=== PATIENT | female | born 1985 | race Caucasian/White ===

== ENCOUNTER → 2017-11-10 11:54 | Outpatient (CLI) | payer BC, SELFPAY ==
[2017-11-10 15:33] LABS: Chlamydia Trachomatis by PCR Negative (Negative); Neisserai gonorrhoeae by PCR Negative (Negative); Probe Check PASS; Sample Adequacy Control PASS; Specimen Processing Control PASS
== END ==
PROVIDERS: Visit Provider Obstetrics & Gynecology
DX: Z11.3 Encounter for screening for infections with a predominantly sexual mode of transmission (principal); Z32.01 Encounter for pregnancy test, result positive
CPT/HCPCS: 87491; 87591

== ENCOUNTER → 2017-12-11 14:35 | Outpatient (CLI) | payer BC, SELFPAY ==
[2017-12-11 16:04] LABS: Color, Urine Yellow (Yellow); Glucose, Dipstick 50 mg/dl (Normal); Leukocyte Esterase-Dipstick Negative /ul (Negative); Nitrite-Dipstick Negative (Negative); Occult Blood-Urine Negative /ul (Negative); Protein-Dipstick 15 mg/dl (Negative); Urine Bilirubin Dipstick Negative (Negative); Urine Clarity Sl. Cloudy (Clear); Urine Urobilinogen Normal (Normal)
[2017-12-11 16:06] LABS: Amphetamine Urine VISTA NEGATIVE (<1000 ng/mL); Barbiturate Urine VISTA NEGATIVE (< 200 ng/mL); Benzodiazepine Urine VISTA NEGATIVE (< 200 ng/mL); Cocaine Urine VISTA NEGATIVE (< 300 ng/mL); Ecstacy Urine VISTA NEGATIVE (< 500 ng/mL); Methadone Urine VISTA NEGATIVE (< 300 ng/mL); PCP Urine VISTA NEGATIVE (< 25 ng/mL); THC Urine VISTA NEGATIVE (< 50 ng/mL); Vista UDS pH Range 6
[2017-12-11 16:20] LABS: Ketone-Dipstick 150 mg/dl (Negative)
[2017-12-11 18:10] LABS: Absolute Lymphocyte Count 2.73 X10^3/ul (0.83-4.51); Absolute Neutrophil Count 8.2 X10^3/uL (2.0-7.7); Basophil# 0.04 X10^3/uL; Basophil% 0.3 % (0-1); Eosinophil# 0.17 X10^3/uL; Eosinophils% 1.4 % (0-5); Hematocrit 41.5 % (37-47); Hemoglobin 13.3 g/dl (12.0-15.0); Lymphocyte # 2.73 X10^3/ul (4.0); Lymphocyte % 22.8 % (19-41); Mean Corpuscular Hgb 27.4 pg (27.0-32.0); Mean Corpuscular Volume 85.4 fL (81-99); Mean Platelet Vol. 11.4 fl (6.2-12.0); Monocyte# 0.85 X10^3/uL; Monocyte% 7.1 % (0-10); Neutrophil # 8.18 X10^3/uL (2.7-7.7); Neutrophil % 68.1 % (47-70); Platelet Count 211 K/mm3 (150-450); RBC Distribution Width CV 14.8 % (11.6-14.6); RBC Distribution Width SD 45.7 fl (35.1-43.9); Red Blood Count 4.86 M/mm3 (4.2-5.4)
[2017-12-11 18:20] LABS: POSITIVE COUNT NO; POSITIVE DIFFERENTIAL NO; POSITIVE MORPHOLOGY NO
[2017-12-11 18:39] LABS: ALB/GLOB Ratio 0.9 RATIO (0.9-2.4); AST(SGOT) 14 U/L (15-37); Alanine Aminotransfer ALT/SGPT 26 U/L (13-56); Albumin, Serum 3.3 g/dL (3.2-5.0); Alkaline Phosphatase 67 U/L (45-117); Anion Gap 10 (5-15); BUN 12 mg/dL (7-18); BUN/Creat Ratio 25.5 RATIO (10-20); Calcium,Total 9.1 mg/dL (8.5-10.1); Chloride 105 mmol/L (98-107); Creatinine, Serum 0.47 mg/dL (0.55-1.02); EST Glomerular Filtration Rate 161 mL/min (>60); Est Glom Filt Rate - Afr Amer 194 mL/min (>60); Globulin 3.6 g/dL (2.2-4.2); Glucose 113 mg/dL (74-106); Protein, Total 6.9 g/dL (6.4-8.2); Sodium Level 139 mmol/L (136-145); Thyroid Stim Hormone (TSH) 1.01 uIU/mL (0.358-3.74)
[2017-12-11 18:50] LABS: Hemoglobin A1c 5.3 % (4.2-6.3)
[2017-12-12 01:13] LABS: Prenatal RPR NONREACTIVE (NONREACTIVE)
[2017-12-12 10:46] LABS: HIV - WCH Non-Reactive (Nonreactive); Rubella IgG 70.7 IU/mL; Vitamin D,25 Hydroxy 24.4 ng/mL (29.95-100.01)
[2017-12-13 11:47] LABS: HEPATITIS B SURFACE AG Negative (Negative); Hep C Antibodies <0.1 s/co ratio (0.0-0.9)
== END ==
PROVIDERS: Visit Provider Obstetrics & Gynecology
DX: Z34.81 Encounter for supervision of other normal pregnancy, first trimester (principal)
CPT/HCPCS: 36415; 80053; 80307; 81002; 82306; 83036; 84443; 85025; 86703; 86762; 86803; 87340

== ENCOUNTER → 2018-03-31 10:51 | Outpatient (CLI) | payer BC, SELFPAY ==
[2018-03-31 13:53] LABS: Hematocrit 34.8 % (37-47); Hemoglobin 10.6 g/dl (12.0-15.0); Mean Corp Hgb Conc 30.5 g/gl (32-36); Mean Corpuscular Hgb 25.1 pg (27.0-32.0); Mean Corpuscular Volume 82.3 fL (81-99); Mean Platelet Vol. 10.7 fl (6.2-12.0); Platelet Count 214 K/mm3 (150-450); RBC Distribution Width CV 14.6 % (11.6-14.6); RBC Distribution Width SD 43.6 fl (35.1-43.9); Red Blood Count 4.23 M/mm3 (4.2-5.4); Scan Indicated on CBC? Y/N NO; White Blood Count 10.4 K/mm3 (4.4-11.0)
[2018-03-31 14:12] LABS: Glucose Challenge Gest 1H 50g 180 mg/dL (70-140)
[2018-04-01 09:55] LABS: Vitamin D,25 Hydroxy 45.2 ng/mL (29.95-100.01)
== END ==
PROVIDERS: Visit Provider Obstetrics & Gynecology
DX: Z34.83 Encounter for supervision of other normal pregnancy, third trimester (principal)
CPT/HCPCS: 36415; 82306; 82950; 85027

== ENCOUNTER → 2018-04-09 09:22 | Outpatient (CLI) | payer BC, SELFPAY ==
[2018-04-09 11:03] LABS: Glucose GTT-Gestational 1 Hr 180 mg/dL (<190)
[2018-04-09 11:08] LABS: Glucose GTT-Gestation. Fasting 82 mg/dL (<105)
[2018-04-09 12:52] LABS: Glucose GTT-Gestational 2 Hr 215 mg/dL (<165)
[2018-04-09 14:05] LABS: Glucose GTT-Gestational 3 Hr 196 L (<145)
== END ==
PROVIDERS: Family Provider Family Medicine; PCP Family Medicine; Visit Provider Obstetrics & Gynecology
DX: O99.810 Abnormal glucose complicating pregnancy (principal); Z3A.00 Weeks of gestation of pregnancy not specified
CPT/HCPCS: 36415; 82951; 82952

== ENCOUNTER 2018-04-29 08:00 | Outpatient (RCR) | payer BC, SELFPAY | END 2018-05-03 23:59 | LOC: DC 08:00 | PROVIDERS: Family Provider Family Medicine; PCP Family Medicine; Visit Provider Obstetrics & Gynecology | DX: O24.912 Unspecified diabetes mellitus in pregnancy, second trimester (principal); Z68.32 Body mass index [BMI] 32.0-32.9, adult; Z71.3 Dietary counseling and surveillance | CPT/HCPCS: 97802; 97803; G0108 ==

== ENCOUNTER 2018-05-11 18:30 | Outpatient (RCR) | payer BC, SELFPAY | END 2018-05-11 23:59 | LOC: DC 18:30 | PROVIDERS: Family Provider Family Medicine; PCP Family Medicine; Visit Provider Obstetrics & Gynecology | DX: O24.912 Unspecified diabetes mellitus in pregnancy, second trimester (principal); Z68.32 Body mass index [BMI] 32.0-32.9, adult; Z71.3 Dietary counseling and surveillance ==

== ENCOUNTER → 2018-05-26 13:45 | Outpatient (CLI) | payer BC, SELFPAY ==
[2018-05-26 17:04] LABS: Group B Strep DNA By PCR Negative (Negative); Internal Control PASS; Probe Check PASS; Specimen Processing Control PASS
== END ==
PROVIDERS: Visit Provider Obstetrics & Gynecology
DX: Z36.85 Encounter for antenatal screening for Streptococcus B (principal)
CPT/HCPCS: 87081; 87653

== ENCOUNTER 2018-05-26 23:15 | Inpatient (IN) | payer BC, SELFPAY ==
[2018-05-26] MEDS: Lactated Ringers 1,000 ML 50 ML IV (23:50)
[2018-05-27 00:01] LABS: Bedside Glucose 97 mg/dL (70-110)
[2018-05-27] MEDS: Betamethasone/Betamethasone 30 MG/5 ML Vial 12 MG IM (00:02)
--- NOTE | 2018-05-27 00:03 | PCM.PN.BLA ---
Progress Note LABOR PROGRESS NOTE 33 yo [id number] female presents prior to MN at 36 6/7 wk with gross ROM and UCs. Given Betamethasone per protocol for . Ordered PCN for under 37 wks, now 37 wks. Rapid strep GBS NEG. BP 119/67 A pos RI. GDM Diet controlled. 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 Now 37 wk after MN. Given betamethasone for SROM under 37 wks, but now 37 wks. NO PCN for GBS prophylaxis. GBS neg Admit for labor. Watch progress, descent, tolerance of labor
--- NOTE | 2018-05-27 00:08 | PN_ITS ---
Progress Note LABOR PROGRESS NOTE 33 yo [id number] female presents prior to MN at 36 6/7 wk with gross ROM and UCs. Given Betamethasone per protocol for . Ordered PCN for under 37 wks, now 37 wks. Rapid strep GBS NEG. BP 119/67 A pos RI. GDM Diet controlled. 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 Now 37 wk after MN. Given betamethasone for SROM under 37 wks, but now 37 wks. NO PCN for GBS prophylaxis. GBS neg Admit for labor. Watch progress, descent, tolerance of labor
[2018-05-27 00:15] VITALS: BMI 35.2
[2018-05-27 00:20] LABS: Hematocrit 31.4 % (37-47); Hemoglobin 9.7 g/dl (12.0-15.0); Mean Corp Hgb Conc 30.9 g/gl (32-36); Mean Corpuscular Hgb 23.4 pg (27.0-32.0); Mean Corpuscular Volume 75.7 fL (81-99); Mean Platelet Vol. 10.9 fl (6.2-12.0); Platelet Count 198 K/mm3 (150-450); RBC Distribution Width CV 16.2 % (11.6-14.6); RBC Distribution Width SD 43.4 fl (35.1-43.9); Red Blood Count 4.15 M/mm3 (4.2-5.4); White Blood Count 9.8 K/mm3 (4.4-11.0)
[2018-05-27 00:24] LABS: Scan Indicated on CBC? Y/N NO
[2018-05-27] MEDS: Lactated Ringers 1,000 ML 50 ML IV (00:53)
[2018-05-27 01:06] LABS: Bedside Glucose 88 mg/dL (70-110)
[2018-05-27] MEDS: fentaNYL-bupivacaine (epidural) 100 ML BAG EPIDURAL (01:30)
[2018-05-27 02:06] LABS: Bedside Glucose 98 mg/dL (70-110)
[2018-05-27] MEDS: Oxytocin 30 units/NS 500 ml 30 UNITS/500 ML IV.SOLN 334 UNITS IV (02:15)
--- NOTE | 2018-05-27 02:21 | PCM.OB.VAG ---
Vaginal Delivery Maternal Presentation: Active Labor 36 6/7 wk SROM , UCs Amniotic Membrane Rupture Type: Spontaneous at home Amniotic Fluid Description: Clear Final ANJELICA: 06/17/18 Gestational age: 37 Weeks and 0 Days Date of Procedure: 05/27/18 Pre-Operative Diagnosis: 36 6/7 wk SROM Post-Operative Diagnosis: 37 wk Surgery/ Procedure Performed: Spontaneous Vaginal Delivery Anesthesiologist: Rubi Bella Type of Anesthesia: Epidural Description of Procedure: of a arriola viable female over intact perineum. Head delivered OA. no nuchal cord Shoulders delivered easily. Cord clamped x two and cut. Infant to maternal abdomen with spont vigorous cry. Delayed cord clamping. Clamped x two and cut. PP exam; 1st posterior vag lac repaired to intact, hemostatic with 309 Vicryl Rapide Placenta delivered spont expulsion, expression 3V normal appearing and intact with trailing membranes EBL 200 cc Pt and jewel procedure well. To recovery, stable condition Ray Jonnie counts correct x two Presentation: Vertex, ALEJANDRO Placental Delivery Description: Spontaneous, Expressed Placenta Disposition: [facility] Cord Vessel Description: 3 Vessels Estimated Blood Loss: 200 A gender: Female (1 minute): 9 (5 minute): 10 Laceration: Vaginal Extension/lac, 1st degree - repaired to intact, hemostatic with fig 8 stitch 3-0 vicryl rapide under epidural Medications given after delivery: IV Pitocin Complications: None
--- NOTE | 2018-05-27 02:28 | PCM.DCVAG ---
Discharge Diet: No Restrictions Discharge Activity: May Shower, May Take a Tub Bath May resume sexual activity in: 4-6 weeks Additional Activity Instructions:: Nothing in the vagina for 4-6 weeks. You may return to work/school in 6 weeks. Additional Instructions: If you experience any of the following, contact your healthcare provider. Bleeding that soaks a pad every hour for 2 hours Fever 100.4 or higher Unrelieved abdominal pain Problems urinating (including inability to urinate or burning while urinating). Visual changes Severe headache Flu-like symptoms Pain or redness in one of both of your breasts Pain, warmth, tenderness or swelling in your legs, especially the calf area Frequent nausea and vomiting Symptoms of depression or anxiety If you experience any of the following, call 911 or go to the nearest Emergency Room. Chest pain Problems breathing Seizure activity Partial or complete paralysis of a body part, slurred speech, weakness or drooping of the face, or a sudden inability to walk or hold your balance Allergies/Adverse Reactions: Allergies nalbuphine [From Nubain] Allergy (Verified 05/27/18 00:11) Rash Medications to take at Discharge Inositol/G-Rcdeo-Abrljudb [Ovasitol Powder Packet] 1 each PO BID 05/27/18 Vits [Prenatabs FA] 1 tablet PO DAILY 05/27/18 Please Follow Up With: Jacqueline Bear MD - [phone] When: Call to make an appointment with your doctor in 6 weeks. Test Results: Test results from this visit will be discussed in further detail at your follow-up appointment, if applicable. Proposed Discharge Date: 05/29/18
--- NOTE | 2018-05-27 02:29 | DCINST_ITS ---
Discharge Diet: No Restrictions Discharge Activity: May Shower, May Take a Tub Bath May resume sexual activity in: 4-6 weeks Additional Activity Instructions:: Nothing in the vagina for 4-6 weeks. You may return to work/school in 6 weeks. Additional Instructions: If you experience any of the following, contact your healthcare provider. * Bleeding that soaks a pad every hour for 2 hours * Fever 100.4 or higher * Unrelieved abdominal pain * Problems urinating (including inability to urinate or burning while urinating). * Visual changes * Severe headache * Flu-like symptoms * Pain or redness in one of both of your breasts * Pain, warmth, tenderness or swelling in your legs, especially the calf area * Frequent nausea and vomiting * Symptoms of depression or anxiety If you experience any of the following, call 911 or go to the nearest Emergency Room. * Chest pain * Problems breathing * Seizure activity * Partial or complete paralysis of a body part, slurred speech, weakness or drooping of the face, or a sudden inability to walk or hold your balance Allergies/Adverse Reactions: Allergies nalbuphine [From Nubain] Allergy (Verified 05/27/18 00:11) Rash Medications to take at Discharge Inositol/A-Dbsrq-Qelttgiv [Ovasitol Powder Packet] 1 each PO BID 05/27/18 Vits [Prenatabs FA] 1 tablet PO DAILY 05/27/18 Please Follow Up With: Jacqueline Bear MD - [phone] When: Call to make an appointment with your doctor in 6 weeks. Test Results: Test results from this visit will be discussed in further detail at your follow- up appointment, if applicable. Proposed Discharge Date: 05/29/18
[2018-05-27] MEDS: Oxytocin 30 units/NS 500 ml 30 UNITS/500 ML IV.SOLN 167 UNITS IV (02:45)
[2018-05-27 04:01] LABS: Bedside Glucose 115 mg/dL (70-110)
[2018-05-27 04:30] VITALS: BP 108/56; PULSE 51; RESP 18; TEMP 37.2; O2SAT 96
[2018-05-27] MEDS: 0.9% Saline Lock 10 ML Syringe IV (04:35)
[2018-05-27 06:56] LABS: Bedside Glucose 112 mg/dL (70-110)
--- NOTE | 2018-05-27 06:56 | NURSING ---
At 0640, Dr. Reid called and informed of pt's BGT 115 during recovery and pt hadn't eaten since between 1930 and 2099. Also requested orders. Order received to obtain fasting BGT and 2 hr PP BGTs today.
[2018-05-27 07:58] VITALS: BP 107/58; PULSE 55; RESP 16; TEMP 37.4; O2SAT 96
--- NOTE | 2018-05-27 08:00 | PCM.PN.BLA ---
Progress Note Day of Delivery Breast feeding well. Some cramping with nursing. Given Betamethasone prior to delivery as presented with SROM at 36 6/7 wk, with delivery at 37 wks. AVSS. Fingerstick glucose 113 (after betamethasone) and all labor monitoring of blood sugars WNL also. GEN: A and O, NAD Fundus firm NT at 2 cm inf to umbilicus. A/P: Stable PPD#0 will check FSBG today only and then discontinue. Well controlled GDM by diet alone Continue care.
[2018-05-27 12:05] LABS: Bedside Glucose 151 mg/dL (70-110)
[2018-05-27 12:14] VITALS: BP 108/64; PULSE 69; RESP 16; TEMP 37.5; O2SAT 96
[2018-05-27 16:00] VITALS: BP 111/54; PULSE 72; RESP 16; TEMP 37.3; O2SAT 96
[2018-05-27] MEDS: Prenatal Vits Tablet 1 TABLET PO (18:24)
[2018-05-27] MEDS: Ibuprofen 600 MG Tablet PO (18:30)
[2018-05-27 19:35] VITALS: BP 100/55; PULSE 76; RESP 18; TEMP 37.2; O2SAT 95
--- NOTE | 2018-05-27 19:35 | NURSING ---
pt encouraged to get up and void at this time d/t uterus palpation 1 below and to the right
[2018-05-27 23:05] VITALS: BP 109/55; PULSE 56; RESP 16; TEMP 36.7; O2SAT 95
[2018-05-28 03:32] VITALS: BP 105/64; PULSE 64; RESP 16; TEMP 36.8
--- NOTE | 2018-05-28 07:24 | PCM.PN.OB ---
Subjective: No issues overnight. Patricia feels well this morning and desires discharge today if infant cleared. bilirubin level pending for this afternoon. Denies heavy lochia or significant pain. Objective: AVSS - Physical Exam General: Alert, Oriented x3, Cooperative, No apparent distress HEENT: Atraumatic, Normocephalic Lungs: Clear to auscultation, Normal air movement Cardiovascular: Regular rate, Regular Rhythm, Normal S1, Normal S2 Abdomen: Soft, Non Tender, Non-Distended, - - Fundus firm and nontender Extremities: No Calf Tenderness, - - trace LE edema Neurological: Neuro grossly intact Psych/Mental Status: Normal Affect, Appropriate, Alert and oriented to time, place, person, mood and affect Vital Signs Temp Pulse Resp BP Pulse Ox 98.3 F 64 16 105/64 95 05/28/18 03:32 05/28/18 03:32 05/28/18 03:32 05/28/18 03:32 05/27/18 23:05 Oxygen Delivery Method Room Air Weight: 93.1 kg Body Mass Index (BMI) 35.2 Finger Stick Blood Glucose 86 Intake and Output for Last 24 Hours 05/26/18 05/27/18 05/28/18 23:59 23:59 23:59 Intake Total 1561 / 1561 Output Total 900 / 900 Balance 661 / 661 POC Glucose 05/27/18 11:33 POC Glucose 151 H Medical Necessity - Tobacco Use Smoking Status: Never smoker Assessment/Plan All Active Problems Ovarian cyst (Acute) 33yo s/p doing well. -h/o metabolic syndrome, GDM - will start Metformin on discharge. R/b discussed at bedside -Routine care -Plan for early d/c today pending infant discharge
--- NOTE | 2018-05-28 07:26 | PCM.DCVAG ---
Discharge Diet: No Restrictions Discharge Activity: Return to Normal Activity, May Shower, May Take a Tub Bath May resume sexual activity in: 4-6 weeks Additional Activity Instructions:: Nothing in the vagina for 4-6 weeks. You may return to work/school in 6 weeks. Call your doctor if you observe: Fever of 101 or Higher, Inability to urinate, Inability to have a bowel movement, Using more than one pad per hour, Shortness of breath, Chest pain, Calf discomfort, Uncontrolled pain Additional Instructions: If you experience any of the following, contact your healthcare provider. Bleeding that soaks a pad every hour for 2 hours Fever 100.4 or higher Unrelieved incision or abdominal pain Swelling, redness, discharge or bleeding from your incision or episiotomy site Your incision begins to separate Problems urinating (including inability to urinate or burning while urinating). Visual changes Severe headache Flu-like symptoms Pain or redness in one of both of your breasts Pain, warmth, tenderness or swelling in your legs, especially the calf area Frequent nausea and vomiting Symptoms of depression or anxiety If you experience any of the following, call 911 or go to the nearest Emergency Room. Chest pain Problems breathing Seizure activity Partial or complete paralysis of a body part, slurred speech, weakness or drooping of the face, or a sudden inability to walk or hold your balance You may take Ibuprofen or Aleve over the counter for pain. Allergies/Adverse Reactions: Allergies nalbuphine [From Nubain] Allergy (Verified 05/27/18 00:11) Rash Medications to take at Discharge Inositol/S-Uivhf-Dqosxwii [Ovasitol Powder Packet] 1 each PO BID 05/27/18 Vits [Prenatabs FA] 1 tablet PO DAILY 05/27/18 Metformin(XR) [Glucophage Xr] 500 mg PO DAILY #30 tablet 05/28/18 The following prescriptions were given: Metformin(XR) [Glucophage Xr] 500 mg PO DAILY #30 tablet Please Follow Up With: Jacqueline Bear MD When: 6 weeks Test Results: Test results from this visit will be discussed in further detail at your follow-up appointment, if applicable. Proposed Discharge Date: 05/29/18
--- NOTE | 2018-05-28 07:30 | DCINST_ITS ---
Discharge Diet: No Restrictions Discharge Activity: Return to Normal Activity, May Shower, May Take a Tub Bath May resume sexual activity in: 4-6 weeks Additional Activity Instructions:: Nothing in the vagina for 4-6 weeks. You may return to work/school in 6 weeks. Call your doctor if you observe: Fever of 101 or Higher, Inability to urinate, Inability to have a bowel movement, Using more than one pad per hour, Shortness of breath, Chest pain, Calf discomfort, Uncontrolled pain Additional Instructions: If you experience any of the following, contact your healthcare provider. * Bleeding that soaks a pad every hour for 2 hours * Fever 100.4 or higher * Unrelieved incision or abdominal pain * Swelling, redness, discharge or bleeding from your incision or episiotomy site * Your incision begins to separate * Problems urinating (including inability to urinate or burning while urinating). * Visual changes * Severe headache * Flu-like symptoms * Pain or redness in one of both of your breasts * Pain, warmth, tenderness or swelling in your legs, especially the calf area * Frequent nausea and vomiting * Symptoms of depression or anxiety If you experience any of the following, call 911 or go to the nearest Emergency Room. * Chest pain * Problems breathing * Seizure activity * Partial or complete paralysis of a body part, slurred speech, weakness or drooping of the face, or a sudden inability to walk or hold your balance You may take Ibuprofen or Aleve over the counter for pain. Allergies/Adverse Reactions: Allergies nalbuphine [From Nubain] Allergy (Verified 05/27/18 00:11) Rash Medications to take at Discharge Inositol/M-Rkpvc-Emzyxtlx [Ovasitol Powder Packet] 1 each PO BID 05/27/18 Vits [Prenatabs FA] 1 tablet PO DAILY 05/27/18 Metformin(XR) [Glucophage Xr] 500 mg PO DAILY #30 tablet 05/28/18 The following prescriptions were given: Metformin(XR) [Glucophage Xr] 500 mg PO DAILY #30 tablet Please Follow Up With: Jacqueline Bear MD When: 6 weeks Test Results: Test results from this visit will be discussed in further detail at your follow- up appointment, if applicable. Proposed Discharge Date: 05/29/18
[2018-05-28 08:00] VITALS: BP 103/61; PULSE 59; RESP 18; TEMP 36.6
[2018-05-28] MEDS: Ibuprofen 600 MG Tablet PO (08:29)
[2018-05-28] MEDS: Senna/Docusate Sodium 1 Tablet PO (08:30)
[2018-05-28] MEDS: Prenatal Vits Tablet 1 TABLET PO (08:30)
[2018-05-28 13:49] VITALS: BP 99/64; PULSE 59; RESP 16; TEMP 36.8; O2SAT 96
== END 2018-05-28 15:15 | disposition home or self-care (01) | DRG 807 ==
PROVIDERS: Admitting Provider Obstetrics & Gynecology; Visit Provider Obstetrics & Gynecology
DX: O60.14X0 Preterm labor third trimester with preterm delivery third trimester, not applicable or unspecified (principal); Z37.0 Single live birth; O70.0 First degree perineal laceration during delivery; O24.429 Gestational diabetes mellitus in childbirth, unspecified control; Z3A.36 36 weeks gestation of pregnancy
CPT/HCPCS: 59025; 59050; 82962; 85027; 86850; 86900; 99218; J7120; 90686; A4216; G0378; J0702

== ENCOUNTER 2018-07-16 07:05 | Day surgery (SDC) | payer BC, SELFPAY ==
[2018-07-13 10:28] LABS: Hemoglobin 12.7 g/dl (12.0-15.0); Mean Corpuscular Hgb 24.6 pg (27.0-32.0); Mean Corpuscular Volume 79.3 fL (81-99); Mean Platelet Vol. 10.4 fl (6.2-12.0); Platelet Count 203 K/mm3 (150-450); RBC Distribution Width CV 21.6 % (11.6-14.6); RBC Distribution Width SD 61.1 fl (35.1-43.9); Red Blood Count 5.17 M/mm3 (4.2-5.4); Scan Indicated on CBC? Y/N YES- FLAGS NOTED; White Blood Count 6.5 K/mm3 (4.4-11.0)
[2018-07-13 10:42] LABS: International Normalized Ratio 0.9; Partial Thromboplast Time 26.9 Seconds (24.1-36.2); Prothrombin Time (Protime)PT. 12.6 SECONDS (11.7-14.9)
[2018-07-13 10:48] LABS: Hemoglobin A1c 5.5 % (4.2-6.3)
[2018-07-13 10:53] LABS: Differential Comment SCANNED
[2018-07-13 10:56] LABS: Anion Gap 6 (5-15); BUN 20 mg/dL (7-18); BUN/Creat Ratio 30.8 RATIO (10-20); Calcium,Total 8.7 mg/dL (8.5-10.1); Chloride 106 mmol/L (98-107); Creatinine, Serum 0.65 mg/dL (0.55-1.02); EST Glomerular Filtration Rate 110 mL/min (>60); Est Glom Filt Rate - Afr Amer 133 mL/min (>60); Glucose 89 mg/dL (74-106); Potassium 4.1 mmol/L (3.5-5.1); Sodium Level 139 mmol/L (136-145)
[2018-07-13 17:04] LABS: Ferritin 15 ng/mL (8-252); Iron 78 ug/dL (50-170); Iron Binding Capacity,Total 422 ug/dL (250-450); PERCENT IRON SATURATION 18.5 % (15.0-55.0)
--- NOTE | 2018-07-16 07:11 | PCM.HPOB.BLA ---
- Problem List (1) Request for sterilization Status: Acute History and Physical Date of Admission: 07/16/18 Date: 07/10/2018 Name: PATRICIA LLANOS Age: 33 Date of : 1985 HISTORY OF PRESENT ILLNESS: On 07/10/2018, Patricia Llanos, a 33 year old female 2 0 1 0 2, presented for: -- Pre-Op -- Patricia is being seen for pre op. Pt will be having tubaligation 07-16-18. Medications and allergies are up to date. COnsents signed and information reviewed. AM as above. Plan laparoscopic left salpingectomy for sterilization. Patient s/p R. salpingectomy for ectopic . [facility] ALLERGIES: NKDA, Nubain and Hives and/or rash MEDICATIONS HISTORY: Current medications prescribed by our practice are: 1. Vitamin D3 1,000 unit tablet, 1 tab PO daily Patient is also takin. No Meds REVIEW OF SYSTEMS: GENERAL - Denies fever, or chills SKIN - Denies skin changes EYES - Denies visual changes EARS - Denies difficulty hearing NOSE - Denies nasal congestion or bleeding MOUTH - Denies sore throat or difficulty swallowing NECK - Denies pain or swelling RESPIRATORY - Denies shortness of breath or wheezing CARDIOVASCULAR - Denies palpitations or chest pain GASTROINTESTINAL - Denies nausea, vomiting, diarrhea, constipation GENITOURINARY - Denies dysuria, frequency of urination, incontinence of urine MUSCULOSKELETAL - Denies joint or muscle pain NEUROLOGICAL - Denies localized numbness or weakness PSYCHIATRIC - Denies depression or anxiety ENDOCRINE - Denies heat or cold intolerance, weight loss or gain HEMATO-IMMUNOLOGIC - Denies excesive bleeding with cuts SURGICAL HISTORY: 1. 03/01/2012 gallbladder sugery gallstones 2. 02/29/[address] Leon 3. 06/02/2013 Dx laparoscopy, Rt salpingectomy Bryan Treadwell M.D. MENSTRUAL HISTORY: LMP Known?- DefiniteAmount/Duration - 5-6 DAYS, Regularity - Regular, Frequency - monthly days, LMP - 07/05/18, Age Onset Menarche - 10 PAST PREGNANCIES: Total Pregnancies - 3; Full Term Pregnancies - 2; Premature - 0; Abortions, Induced - 0; Abortions, Spontaneous - 1; Ectopics - 0; Multiple Births - 0; Living Children - 2 FAMILY HISTORY: Mother - FH: Malignant neoplasm of brain; Aunt - Unknown Disease; MaternalGrandparent - Age 75, Carcinoma of breast; PaternalGrandparent - FH: Diabetes mellitus type 2; PaternalGrandparent - Colon Cancer; SOCIAL HISTORY: Alcohol Use - denies drinking Smoking - Never Diet - balanced Diet Lifestyle - moderate stress lifestyle Exercise - regular Seat Belt Use - always Employer - [employer] 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 Illicit Drug Use - denies use of street drugs Sexual Activity - Residence - lives with Place of - [place], [place] Hours Worked - 37 Spouse-Sig Other Name - Ulices Spouse-Sig Other Occupation - press operator apprentice- [employer] Spouse-Sig Other Phone No - [phone] Children Name(s) - Ruchi Naik ('18) Control - pt will be having tubal 07-16-18 PHYSICAL EXAMINATION BP- 98/70 Sitting, Right arm, regular cuff Weight- 187.00 lbs Height- 64.00 inch BMI:32.17 CONSTITUTIONAL - NAD, well nourished, and well developed SKIN - No rash, lesions, or ulcers HEENT - normocephalic, atraumatic, sclerae anicteric LUNGS - CTA x2 without wheezes, crackles or rales CARDIAC - Regular rate and rhythm without rubs, murmurs, or gallops ABDOMEN - Without hepatosplenomegaly, distention, masses, rebound, or guarding; normal bowel sounds; no hernias EXTREMITIES - No edema or calf tenderness NEUROLOGICAL - normal gait, normal balance, normal motor PSYCHIATRIC - A and O to time, place, person, mood and affect ASSESSMENT: 1. Encounter For Sterilization PLAN BY DIAGNOSIS: 1. Encounter For Sterilization Plan for laparoscopic L. salpingectomy Reviewed how procedure performed and surgical risks, benefits, indications and alternatives. Pt declines alternative contraception. Consents signed Preop labs pending - HbA1C also given h/o GDM NPO @ MN prior to arrival with >4h arrival clear liquid exception Preop packet given and reviewed with body wash instructions Medication(s) Stopped/Reason: 28 mg-800 mcg tablet - No Longer Needed, Ovasitol 2,000 mg-50 mg oral powder packet - No Longer Needed, Vitamin D3 1 and 00 unit tablet - No Longer Needed
[2018-07-16 07:27] VITALS: BP 124/87; PULSE 98; RESP 16; TEMP 36.3; O2SAT 98; BMI 31.3
[2018-07-16 07:34] LABS: Internal QC Validated? YES +Cl - CLEAR BKGD; Pregnancy, Urine Negative Negative
[2018-07-16 07:41] LABS: Transferrin 283 mg/dL (200-370)
--- NOTE | 2018-07-16 08:40 | FALS_PTH ---
PATIENT: AVEL LLANOS LOC: [facility] [place] U#:[id number] AGE/SX: 33/F ROOM: RE07/16/[address]: Dr. Jacqueline Bobo MD : 1985 BED: DIS: 07/16/2018 SPEC #: [id number] RECD: 07/16/18 10:40 STATUS: SELENA JESUS #: [id number] JARETT: 07/16/18 08:[address]: Jacqueline Colvin DEPT: SURGICAL PATHOLOGY RECD BY: Rishi Argueta ENTERED: 07/16/18 11:40 SP TYPE: FALL TUBES OTHR DR: Dr. Hitesh Abreu MD Tissues: Fallopian tube Procedures: Surgery Specimen Level II HEADER OPERATION: Laparoscopic salpingectomy PRE-OP DIAGNOSIS: Request for sterilization TISSUE SUBMITTED: Left fallopian tube MICROSCOPIC DIAGNOSIS Left fallopian tube, salpingectomy: Fallopian tube including fimbrial end, no pathologic diagnosis. SJ:matt 07/17/18 COMMENT Please make reference to previous specimen ([id number]) right fallopian tube, salpingectomy with diagnosis of fallopian tube with hemorrhagic infarction, consistent with torsion. MICROSCOPIC DESCRIPTION Slides are reviewed. GROSS DESCRIPTION Received in fixative is one container labeled with the patient's name and designated left fallopian. The specimen consists of a fallopian tube including fimbrial end measuring 6 cm in length and 0.5 cm in diameter. Sections do not reveal any mass lesion. Tool Machine Set Up Operator sections are submitted in one cassette. / SJ:rg 07/16/18 TC:4 CPT: 29644
[2018-07-16] MEDS: Bupivacaine Mpf 0.5% 30 ML VIAL (09:30)
[2018-07-16 09:52] VITALS: BP 115/61; BP 124/87; PULSE 73; RESP 16; TEMP 36.8; O2SAT 98
--- NOTE | 2018-07-16 09:56 | PCM.OPRPT ---
Problem List (1) Request for sterilization Status: Acute Report of Operation Date of Procedure: 07/16/18 Pre-Operative Diagnosis: Sterilization request Post-Operative Diagnosis: sterilization request Surgery/Procedure Performed:: Laparoscopic left salpingectomy Description of Surgical Findings:: Status post right salpingectomy, normal-appearing uterus with mild pelvic adhesions assistive technology specialist: April Yoo Type of Anesthesia:: General, Local Anesthesiologist: Hitesh Alex Specimen's removed: Left tube Drains: Urine output 50 mL Estimated Blood Loss (mL): 5 Fluids Replaced: 1000 Description of Procedure: Indications: Ms. Barron is a 33-year-old para 2012 status post right salpingectomy for prior tubal desiring sterilization. She was counseled regarding risks, benefits, indications and reversible contraceptive alternatives as well as various methods of sterilization. Following counseling she opted to proceed with laparoscopic left salpingectomy. Informed consent was obtained. Procedure: Patient was taken to the operating room and signed and was performed. She is placed in a dorsal supine position and induced under general anesthesia and intubated. Arms were tucked at her sides and she was placed into dorsal lithotomy. The perineum and abdomen were prepped and draped in sterile fashion. Straight catheterization of the bladder was performed. She is placed into high lithotomy with speculum was placed in the vagina and the cervix grasped the anterior cervical lip using a single-tooth tenaculum. The uterus was sounded to 9 cm and a a ZUMI uterine manipulator was placed. The patient was then placed into low lithotomy attention turned to the abdomen. An inferior umbilical incision was placed. A Veress needle was subsequently introduced into the abdomen with successful hanging drop test and no aspirate. The abdomen was insufflated to 15 mmHg. The Veress needle was removed and a 5 mm port with laparoscope was placed at the umbilical site confirming entry into the abdominal cavity. In similar fashion a suprapubic and right lower quadrant incisions were made under transillumination and 5 mm ports were also placed. The abdomen and pelvis were inspected. There was notably the absence of the right distal tube. Attention was turned to the left adnexa and the left distal tube was grasped and salpingectomy performed by regulation and transecting the tube from the mesosalpinx to the level of the uterine cornua using the Enseal device. Tube was removed via a port. There is excellent hemostasis. The procedure was complete. The abdomen was desufflated the patient given several deep breaths for further desufflation. Trochars were removed from the abdomen. The skin was closed using 4-0 Monocryl and half percent bupivacaine was administered for a total of 10 cc local analgesia. Sterile strips and OpSite dressings were placed over the incisions. The patient was awakened, extubated, transferred to the recovery room without complication. Sponge counts were correct x2. The patient tolerated the procedure well. - Complications None - Admit VTE Documentation VTE Present on Admission: No VTE Mechan Device Prophylaxis: SCD's VTE Pharm Prophylaxis ordered?: No
[2018-07-16 10:00] VITALS: BP 104/62; BP 124/87; PULSE 63; RESP 16; O2SAT 97
[2018-07-16 10:15] VITALS: BP 106/60; BP 124/87; PULSE 52; RESP 16; O2SAT 99
--- NOTE | 2018-07-16 10:22 | DCINST_ITS ---
- Discharge Diagnoses Current Active Problems: Current Active and Chronic Problems Request for sterilization (Acute) Reason(s) for Visit for Discharge Instructions: Laparoscopy You will use the following diet at home:: No restrictions Your food should be the consistency of: Regular Discharge Activity: Return to Normal Activity, May not drive while taking narcotic pain medications., May Shower May resume sexual activity in: 4 weeks Lifting Restrictions: 10 lb Call your doctor if your incision/area has: Continuous Slow Oozing, Sudden Increased Bleeding, Increased Pain/ Swelling, Increased Redness Call your doctor if you observe: Fever of 101 or Higher, Inability to urinate, Using more than one pad per hour, Shortness of breath, Chest pain, Calf discomfort, Uncontrolled pain Suture Line Care: Avoid Pulling/Pushing Remove Dressing in (days):: 1 Cleanse incision/area with: Soap & Water Allergies/Adverse Reactions: Allergies nalbuphine [From Nubain] Allergy (Verified 07/09/18 08:59) Rash Medications to take at Discharge Ibuprofen [Motrin] 600 mg PO Q8H PRN PRN #30 tablet 07/16/18 Oxycodone [Oxyir] 5 mg PO Q6H PRN PRN 7 Days #12 tablet 07/16/18 The following prescriptions were given: Oxycodone [Oxyir] 5 mg PO Q6H PRN PRN 7 Days #12 tablet PRN Reason: Severe Pain (6-10/10) Ibuprofen [Motrin] 600 mg PO Q8H PRN PRN #30 tablet PRN Reason: Pain Primary Care Physician: Hitesh Abreu MD [Primary Care Provider] - Test Results: Test results from this visit will be discussed in further detail at your follow- up appointment, if applicable. Please Follow Up With: Jacqueline Bear MD When: 2-4 weeks
[2018-07-16 10:25] VITALS: BP 124/87; BP 98/65; PULSE 47; RESP 16; TEMP 36.1; O2SAT 97
[2018-07-16] MEDS: HYDROcodone Bitartrate/Apap 5/325 Tablet PO (10:49)
[2018-07-16 11:51] VITALS: BP 124/87; BP 99/56; PULSE 51; RESP 16; TEMP 36.3; O2SAT 97
--- OUTSIDE RECORDS SUMMARY | 2018-09-01 00:33 | XMS RPT_ITS ---
:1985 Author Organization [place] Support Name Relationship Address Phone ROMIYVONNE Unavailable [address] + [place] [address] [facility] Unavailable [address] + [place] [address] YVONNE BARRON Unavailable [address] + [place] [address] [facility] Unavailable [address] + [place] [address] YVONNE BARRON Unavailable [address] + [place] [address] [facility] Unavailable [address] + [place] [address] YVONNE BARRON Unavailable [address] + [place] [address] [facility] Unavailable [address] + [place] [address] YVONNE BARRON Unavailable [address] + [place] [address] [facility] Unavailable [address] + [place] [address] YVONNE BARRON Unavailable [address] + [place] [address] [facility] Unavailable [address] + [place] [address] YVONNE BARRON Unavailable [address] + [place] [address] [facility] Unavailable [address] + [place] [address] YVONNE BARRON Unavailable [address] + [place] [address] [facility] Unavailable [address] + [place] [address] YVONNE BARRON Unavailable [address] + [place] [address] [facility] Unavailable [address] + [place] [address] YVONNE BARRON Unavailable [address] + [place] [address] [facility] Unavailable [address] + [place] [address] YVONNE BARRON Unavailable [address] + [place] [address] [facility]MA Unavailable [address] + [place] [address] YVONNE BARRON Unavailable [address] + [place] [address] [facility] Unavailable [address] + [place] [address] Care Team Providers Name Role Phone PlummerRich, Summer Attending Unavailable Plummer-Jeramie, Summer Attending Unavailable Plummer-Jeramie, Summer Attending Unavailable Plummer-Jeramie, Summer Attending Unavailable Abreu, Hitesh Primary Care Unavailable -Jeramie, Summer Attending Unavailable Plummer-Jeramie, Summer Referring Unavailable Abreu, Hitesh Primary Care Unavailable Plummer-Jeramie, Summer Admitting Unavailable Plummer-Jeramie, Summer Attending Unavailable Plummer-Jeramie, Summer Referring Unavailable Abreu, Hitesh Primary Care Unavailable Plummer-Jeramie, Summer Attending Unavailable Abreu, Hitesh Primary Care Unavailable Rishi Plummer Consulting Unavailable Plummer-Jeramie, Summer Attending Unavailable Abreu, Hitesh Primary Care Unavailable Rishi Plummer Consulting Unavailable Plummer-Jeramie, Summer Attending Unavailable Devora Reid Admitting Unavailable Devora Reid Attending Unavailable Plummer-Jeramie, Summer Attending Unavailable Abreu, Hitesh Primary Care Unavailable Rishi Plummer Consulting Unavailable -Jeramie, Summer Attending Unavailable Plummer-Jeramie, Summer Referring Unavailable Abreu, Hitesh Primary Care Unavailable PROBLEMS PROBLEMS DATE TYPE CONDITION / CODE ATTENDING STATUS SOURCE 07/16/2018 Unknown Z30.2 - Encounter Marianela Active [place] for sterilization / [facility] Z30.2(ICD-10) Hospital Repository 05/26/2018 Unknown Z36.85 - Encounter Marianela Active [place] for [facility] screening for Hospital Streptococcus B / Repository Z36.85(ICD-10) 06/04/2018 Unknown O24.912 - Marianela, Active [place] Unspecified [facility] diabetes mellitus Hospital in , Repository second trimester / O24.912(ICD-10) 03/31/2018 Unknown Z34.83 - Encounter Marianela Active [place] for supervision of [facility] other normal Hospital , third Repository trimester / Z34.83(ICD-10) 12/11/2017 Unknown Z34.81 - Encounter Marianela Active [place] for supervision of [facility] other normal Hospital , first Repository trimester / Z34.81(ICD-10) 11/10/2017 Unknown Z11.3 - Encounter Jihan [place] for screening for [facility] infections with a Hospital predominantly Repository sexual mode of transmission / Z11.3(ICD-10) 11/10/2017 Unknown Z32.01 - Encounter Jihan Bear [place] for test, [facility] result positive / Hospital Z32.01(ICD-10) Repository PROCEDURES PROCEDURES No Procedure Records FoundRESULTS RESULTS DISCHARGE INSTRUCTION Observed: 07/16/2018 Status: F Source: [place] 10:43 AM [facility] REPOSITORY [facility] Medical Records Department [address] [place] [address] Instructions for Home/Discharge Instructions 07/16/18 1002 MR#: [id number] Acct: [id number] Name: AVEL BARRON Rep #: [id number] : 1985 33 From: Jacqueline Bobo MD PCP: Hitesh Abreu MD Status: REG [facility] - Discharge Diagnoses Current Active Problems: Current Active and Chronic Problems Request for sterilization (Acute) Reason(s) for Visit for Discharge Instructions: Laparoscopy You will use the following diet at home:: No restrictions Your food should be the consistency of: Regular Discharge Activity: Return to Normal Activity, May not drive while taking narcotic pain medications., May Shower May resume sexual activity in: 4 weeks Lifting Restrictions: 10 lb Call your doctor if your incision/area has: Continuous Slow Oozing, Sudden Increased Bleeding, Increased Pain/ Swelling, Increased Redness Call your doctor if you observe: Fever of 101 or Higher, Inability to urinate, Using more than one pad per hour, Shortness of breath, Chest pain, Calf discomfort, Uncontrolled pain Suture Line Care: Avoid Pulling/Pushing Remove Dressing in (days):: 1 Cleanse incision/area with: Soap AND Water Allergies/Adverse Reactions: Allergies nalbuphine [From Nubain] Allergy (Verified 07/09/18 08:59) Rash Medications to take at Discharge Ibuprofen [Motrin] 600 mg PO Q8H PRN PRN #30 tablet 07/16/18 Oxycodone [Oxyir] 5 mg PO Q6H PRN PRN 7 Days #12 tablet 07/16/18 The following prescriptions were given: Oxycodone [Oxyir] 5 mg PO Q6H PRN PRN 7 Days #12 tablet PRN Reason: Severe Pain (-05/13) Ibuprofen [Motrin] 600 mg PO Q8H PRN PRN #30 tablet PRN Reason: Pain Primary Care Physician: Hitesh Abreu MD [Primary Care Provider] - Test Results: Test results from this visit will be discussed in further detail at your follow-up appointment, if applicable. Please Follow Up With: Jacqueline Bear MD When: 2-4 weeks 07/16/18 1043 <Electronically signed by Jacqueline Bear MD> Date Jacqueline Bear MD CC: Hitesh Abreu MD OPERATIVE REPORT Observed: 07/16/2018 Status: F Source: [place] 10:02 AM [facility] REPOSITORY [facility] Medical Records Department [address] [place] [id number] Operative Report 07/16/18 0956 MR#: [id number] Acct: [id number] Name: AVEL BARRON Timothy Rep #: [id number] : 1985 33 From: Jacqueline Bobo MD PCP: Hitesh Abreu MD Status: REG [facility] Y Location: [place] [address] Problem List (1) Request for sterilization Status: Acute Report of Operation Date of Procedure: 07/16/18 Pre-Operative Diagnosis: Sterilization request Post-Operative Diagnosis: sterilization request Surgery/Procedure Performed:: Laparoscopic left salpingectomy Description of Surgical Findings:: Status post right salpingectomy, normal-appearing uterus with mild pelvic adhesions group fitness department head: April Yoo Type of Anesthesia:: General, Local Anesthesiologist: Hitesh Alex Specimen's removed: Left tube Drains: Urine output 50 mL Estimated Blood Loss (mL): 5 Fluids Replaced: 1000 Description of Procedure: Indications: Ms. Barron is a 33-year-old para 2012 status post right salpingectomy for prior tubal desiring sterilization. She was counseled regarding risks, benefits, indications and reversible contraceptive alternatives as well as various methods of sterilization. Following counseling she opted to proceed with laparoscopic left salpingectomy. Informed consent was obtained. Procedure: Patient was taken to the operating room and signed and was performed. She is placed in a dorsal supine position and induced under general anesthesia and intubated. Arms were tucked at her sides and she was placed into dorsal lithotomy. The perineum and abdomen were prepped and draped in sterile fashion. Straight catheterization of the bladder was performed. She is placed into high lithotomy with speculum was placed in the vagina and the cervix grasped the anterior cervical lip using a single-tooth tenaculum. The uterus was sounded to 9 cm and a a ZUMI uterine manipulator was placed. The patient was then placed into low lithotomy attention turned to the abdomen. An inferior umbilical incision was placed. A Veress needle was subsequently introduced into the abdomen with successful hanging drop test and no aspirate. The abdomen was insufflated to 15 mmHg. The Veress needle was removed and a 5 mm port with laparoscope was placed at the umbilical site confirming entry into the abdominal cavity. In similar fashion a suprapubic and right lower quadrant incisions were made under transillumination and 5 mm ports were also placed. The abdomen and pelvis were inspected. There was notably the absence of the right distal tube. Attention was turned to the left adnexa and the left distal tube was grasped and salpingectomy performed by regulation and transecting the tube from the mesosalpinx to the level of the uterine cornua using the Enseal device. Tube was removed via a port. There is excellent hemostasis. The procedure was complete. The abdomen was desufflated the patient given several deep breaths for further desufflation. Trochars were removed from the abdomen. The skin was closed using 4-0 Monocryl and half percent bupivacaine was administered for a total of 10 cc local analgesia. Sterile strips and OpSite dressings were placed over the incisions. The patient was awakened, extubated, transferred to the recovery room without complication. Sponge counts were correct x2. The patient tolerated the procedure well. - Complications None - Admit VTE Documentation VTE Present on Admission: No VTE Mechan Device Prophylaxis: SCD's VTE Pharm Prophylaxis ordered?: No 07/16/18 1002 <Electronically signed by Jacqueline Bear MD> Date Jacqueline Bear MD CC: Hitesh Abreu MD; Jacqueline Bear MD Signed FALLOPIAN TUBES/STERILIZATION Observed: 07/16/2018 Status: F Source: [place] 8:40 AM [facility] REPOSITORY Patient: AVEL BARRON : 1985 (33/F) Acct Num: [id number] Phys: Marianela WOODWARD,Summer Unit Num: [id number] Loc: [facility] Specimen: [id number] Received: 07/16/18 - 1040 Spec Type: FALL TUBES TISSUES 1 TISSUES: Fallopian tube COMMENT Please make reference to previous specimen ([id number]) right fallopian tube, salpingectomy with diagnosis of fallopian tube with hemorrhagic infarction, consistent with torsion. GROSS DESCRIPTION Received in fixative is one container labeled with the patient's name and designated left fallopian. The specimen consists of a fallopian tube including fimbrial end measuring 6 cm in length and 0.5 cm in diameter. Sections do not reveal any mass lesion. Automation Clerk sections are submitted in one cassette. / AYSHA:matt 07/16/18 TC:4 CPT: 25023 HEADER OPERATION: Laparoscopic salpingectomy PRE-OP DIAGNOSIS: Request for sterilization TISSUE SUBMITTED: Left fallopian tube MICROSCOPIC DESCRIPTION Slides are reviewed. MICROSCOPIC DIAGNOSIS Left fallopian tube, salpingectomy: Fallopian tube including fimbrial end, no pathologic diagnosis. AYSHA:matt 07/17/18 Signed Dominic Elizondoin 07/17/18 <signature on file> Performed By: #### PFALS #### [facility] [address] [place], [address] HISTORY AND PHYSICAL Observed: 07/16/2018 Status: F Source: [place] EXAM 7:12 AM [facility] REPOSITORY [facility] Medical Records Department [address] [place] [address] History and Physical 07/16/18 0711 MR#: [id number] Acct: [id number] Name: AVEL BARRON Rep #: [id number] : 1985 33 From: Jacqueline Bobo MD PCP: Hitesh Abreu MD Status: REG [facility] Y Location: [place] [address] - Problem List (1) Request for sterilization Status: Acute History and Physical Date of Admission: 07/16/18 Date: 07/10/2018 Name: AVEL BARRON Age: 33 Date of : 1985 HISTORY OF PRESENT ILLNESS: On 07/10/2018, Avel Barron, a 33 year old female 2 0 1 0 2, presented for: -- Pre-Op -- Avel is being seen for pre op. Pt will be having tubaligation 07-16-18. Medications and allergies are up to date. COnsents signed and information reviewed. AM as above. Plan laparoscopic left salpingectomy for sterilization. Patient s/p R. salpingectomy for ectopic . [facility] ALLERGIES: NKDA, Nubain and Hives and/or rash MEDICATIONS HISTORY: Current medications prescribed by our practice are: 1. Vitamin D3 1,000 unit tablet, 1 tab PO daily Patient is also takin. No Meds REVIEW OF SYSTEMS: GENERAL - Denies fever, or chills SKIN - Denies skin changes EYES - Denies visual changes EARS - Denies difficulty hearing NOSE - Denies nasal congestion or bleeding MOUTH - Denies sore throat or difficulty swallowing NECK - Denies pain or swelling RESPIRATORY - Denies shortness of breath or wheezing CARDIOVASCULAR - Denies palpitations or chest pain GASTROINTESTINAL - Denies nausea, vomiting, diarrhea, constipation GENITOURINARY - Denies dysuria, frequency of urination, incontinence of urine MUSCULOSKELETAL - Denies joint or muscle pain NEUROLOGICAL - Denies localized numbness or weakness PSYCHIATRIC - Denies depression or anxiety ENDOCRINE - Denies heat or cold intolerance, weight loss or gain HEMATO-IMMUNOLOGIC - Denies excesive bleeding with cuts SURGICAL HISTORY: 1. 03/01/2012 gallbladder sugery gallstones 2. 02/29/[address] Leon 3. 06/02/2013 Dx laparoscopy, Rt salpingectomy Bryan Treadwell M.D. MENSTRUAL HISTORY: LMP Known?- DefiniteAmount/Duration - 5- 6 DAYS, Regularity - Regular, Frequency - monthly days, LMP - 07/05/18, Age Onset Menarche - 10 PAST PREGNANCIES: Total Pregnancies - 3; Full Term Pregnancies - 2; Premature - 0; Abortions, Induced - 0; Abortions, Spontaneous - 1; Ectopics - 0; Multiple Births - 0; Living Children - 2 FAMILY HISTORY: Mother - FH: Malignant neoplasm of brain; Aunt - Unknown Disease; MaternalGrandparent - Age 75, Carcinoma of breast; PaternalGrandparent - FH: Diabetes mellitus type 2; PaternalGrandparent - Colon Cancer; SOCIAL HISTORY: Alcohol Use - denies drinking Smoking - Never Diet - balanced Diet Lifestyle - moderate stress lifestyle Exercise - regular Seat Belt Use - always Employer - [email or web address] 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 Illicit Drug Use - denies use of street drugs Sexual Activity - Residence - lives with Place of - [place], [place] Hours Worked - 37 Spouse-Sig Other Name - Yvonne Spouse-Sig Other 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 - power 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- [employer] Spouse-Sig Other Phone No - [phone] Children Name(s) - Ruchi Naik (18) Control - pt will be having tubal 07-16-18 PHYSICAL EXAMINATION BP- 98/70 Sitting, Right arm, regular cuff Weight- 187.00 lbs Height- 64.00 inch BMI:32.17 CONSTITUTIONAL - NAD, well nourished, and well developed SKIN - No rash, lesions, or ulcers HEENT - normocephalic, atraumatic, sclerae anicteric LUNGS - CTA x2 without wheezes, crackles or rales CARDIAC - Regular rate and rhythm without rubs, murmurs, or gallops ABDOMEN - Without hepatosplenomegaly, distention, masses, rebound, or guarding; normal bowel sounds; no hernias EXTREMITIES - No edema or calf tenderness NEUROLOGICAL - normal gait, normal balance, normal motor PSYCHIATRIC - A and O to time, place, person, mood and affect ASSESSMENT: 1. Encounter For Sterilization PLAN BY DIAGNOSIS: 1. Encounter For Sterilization Plan for laparoscopic L. salpingectomy Reviewed how procedure performed and surgical risks, benefits, indications and alternatives. Pt declines alternative contraception. Consents signed Preop labs pending - HbA1C also given h/o GDM NPO @ MN prior to arrival with >4h arrival clear liquid exception Preop packet given and reviewed with body wash instructions Medication(s) Stopped/Reason: 28 mg-800 mcg tablet - No Longer Needed, Ovasitol 2,000 mg-50 mg oral powder packet - No Longer Needed, Vitamin D3 1 and 00 unit tablet - No Longer Needed 07/16/18 0712 <Electronically signed by Jacqueline Bear MD> Date Jacqueline Bear MD Cosign Signature: Date (if applicable) CC: Hitesh Abreu MD; Jacqueline Bear MD Signed ,URINE Collected: 07/16/2018 Status: F Source: [place] 7:10 AM [facility] REPOSITORY Order Comment: Reason for Laboratory Test PRE OP TYPE CODE TESTS RESULT OUT OF REFERENCE UNITS RANGE LAB L400.8000 Negative Normal HCGUQUAL Negative Result Comment: Very dilute urine specimens, as indicated by a low specific gravity, may not contain sales training representative levels of hCG. If is still suspected, a first morning urine specimen should be collected 48 hours later and tested. Performed By: #### L400.7600 #### [facility] [address] [place], [address] CBC-COMPLETE BLOOD CNT Collected: 07/13/2018 Status: F Source: [place] NO DIFF 9:40 AM [facility] REPOSITORY TYPE CODE TESTS RESULT OUT OF RANGE REFERENCE UNITS LAB L100.1000 4.4-11.0 K/mm3 Normal WBC 6.5 LAB L100.1200 4.2-5.4 M/mm3 Normal RBC 5.17 LAB L100.1300 12.0-15.0 g/dl Normal HGB 12.7 LAB L100.1400 37-47 % Normal HCT 41.0 LAB L100.1500 81-99 fL Low MCV 79.3 LAB L100.1600 27.0-32.0 pg Low MCH 24.6 LAB L100.1700 32-36 g/gl Low MCHC 31.0 LAB L100.1810 11.6-14.6 % High RDW CV 21.6 LAB L100.1820 35.1-43.9 fl High RDW SD 61.1 LAB L100.1900 150-450 K/mm3 Normal PLT 203 LAB L100.2000 6.2-12.0 fl Normal MPV 10.4 Performed By: #### L100.0500, L100.4500 #### [facility] [address] [place], [place], [id number] DIFFERENTIAL COMMENT Collected: 07/13/2018 Status: F Source: [place] 9:40 AM [facility] REPOSITORY TYPE CODE TESTS RESULT OUT OF RANGE REFERENCE UNITS LAB L100.4500 Normal SMEAR COMMENT SCANNED Result Comment: ANISOCYTOSIS NOTED Performed By: #### L100.0500, L100.4500 #### [facility] [address] [place], [place], [id number] PROTHROMBIN TIME W/INR Collected: 07/13/2018 Status: F Source: [place] 9:40 AM [facility] REPOSITORY TYPE CODE TESTS RESULT OUT OF RANGE REFERENCE UNITS LAB L300.4150 11.7-14.9 SECONDS Normal PROTIME 12.6 LAB L300.4200 Normal INR 0.9 Performed By: #### L300.3900, L300.4310 #### [facility] [address] [place], [place], [id number] PARTIAL THROMBOPLAST Collected: 07/13/2018 Status: F Source: [place] TIME 9:40 AM [facility] REPOSITORY TYPE CODE TESTS RESULT OUT OF RANGE REFERENCE UNITS LAB L300.4310 24.1-36.2 Seconds Normal PTT 26.9 Performed By: #### L300.3900, L300.4310 #### [facility] [address] [place], [address] HEMOGLOBIN A1C Collected: 07/13/2018 Status: F Source: [place] 9:40 AM [facility] REPOSITORY TYPE CODE TESTS RESULT OUT OF RANGE REFERENCE UNITS LAB L501.9985 4.2-6.3 % Normal HGB A1C 5.5 Performed By: #### L501.9985 #### [facility] [address] [place], [address] BASIC METABOLIC Collected: 07/13/2018 Status: F Source: [place] PROFILE (BMP) 9:40 AM [facility] REPOSITORY Order Comment: PLEASE ADD TO BLOOD IN LAB. RACK MG2 5 N Comments: USE PLASMA FROM AM DRAW TO SEND TO [facility] TYPE CODE TESTS RESULT OUT OF RANGE REFERENCE UNITS LAB L501.0100 74-106 mg/dL Normal GLU 89 Result Comment: Please note revised GLUCOSE reference range effective 2017. LAB L501.1000 7-18 mg/dL High BUN 20 LAB L501.1100 0.55-1.02 mg/dL Normal CREAT,SERUM 0.65 Result Comment: The validity of the calculated GFR AND GFRAA in patients over 70 years has not been determined. Clinical correlation is essential. LAB L501.1110 >60 mL/min Normal EST GFR 110 Result Comment: Non- GFR Calc LAB L501.1115 >60 mL/min Normal EST GFR - AA 133 Result Comment: GFR Calc LAB L501.1300 10-20 RATIO High BUN/CRE 30.8 LAB L501.2200 8.5-10.1 mg/dL CA Normal 8.7 LAB L501.5300 136-145 mmol/L NA Normal 139 LAB L501.5600 3.5-5.1 mmol/L K Normal 4.1 LAB L501.5900 98-107 mmol/L CL Normal 106 LAB L501.6100 21.0-32.0 mmol/L Normal CO2 27.0 LAB L501.6200 5-15 Normal GAP 6 Performed By: #### L500.2500, L503.6030, L503.6550 #### [facility] [address] [place], [place], [id number] IRON+IRON BINDING Collected: 07/13/2018 Status: F Source: [facility] 9:40 AM [facility] REPOSITORY Order Comment: PLEASE ADD TO BLOOD IN LAB. RACK MG2 5 N Comments: USE PLASMA FROM AM DRAW TO SEND TO [facility] TYPE CODE TESTS RESULT OUT OF RANGE REFERENCE UNITS LAB L503.6075 250-450 ug/dL TIBC Normal 422 LAB L503.6150 50-170 ug/dL IRON Normal 78 LAB L503.6250 15.0-55.0 % IRON Normal SATURATION 18.5 Performed By: #### L500.2500, L503.6030, L503.6550 #### [facility] [address] [place], [place], [id number] FERRITIN Collected: 07/13/2018 Status: F Source: [place] 9:40 AM [facility] REPOSITORY Order Comment: PLEASE ADD TO BLOOD IN LAB. RACK MG2 5 N Comments: USE PLASMA FROM AM DRAW TO SEND TO [facility] TYPE CODE TESTS RESULT OUT OF RANGE REFERENCE UNITS LAB L503.6550 8-252 ng/mL Normal FERRITIN 15 Performed By: #### L500.2500, L503.6030, L503.6550 #### [facility] [address] [place], [place], [address] TYPE AND SCREEN Collected: 07/13/2018 Status: F Source: [place] 9:40 AM [facility] REPOSITORY Order Comment: Surgery Date: 07/16/18 Date of Last Transfusion (if within last 3 months) N Hx of Preganancy in last 3 Months No Ever experience any problems with transfusion(s)? N Hx of Transfusion in last 3 Months N Reason for Type AND Screen/Red Cells: SURGERY Time: 0600 SURGICAL PROCEDURE: SALPING TYPE CODE TESTS RESULT OUT OF RANGE REFERENCE UNITS LAB B10.0800 A Normal BLOOD TYPE GEL POSITIVE LAB B100.4000 Normal Antibody NEGATIVE Screen Performed By: #### B101.7475 #### [facility] [address] [place], [address] TRANSFERRIN Collected: 07/13/2018 Status: F Source: [place] 9:40 AM [facility] REPOSITORY Order Comment: PLEASE USE PLASMA FROM AM DRAW. NOT EDTA TUBE. Comments: USE PLASMA FROM AM DRAW TO SEND TO [facility] TYPE CODE TESTS RESULT OUT OF RANGE REFERENCE UNITS LAB L3400.3800 200-370 mg/dL Normal TRANSFERRN 4937 283 Result Comment: Performed at: [facility] [id number] Soft Crab Shedder: Matt Terry PhD, Phone: [phone] Performed By: #### L3400.3800 #### [facility] (refer to report for specific site) refer to report for address and phone number DISCHARGE INSTRUCTION Observed: 05/28/2018 Status: F Source: [place] 7:30 AM [facility] REPOSITORY [facility] Medical Records Department [address] [place] [address] Instructions for Home/Discharge Instructions 05/28/18 0726 MR#: [id number] Acct: [id number] Name: AVEL BARRON Rep #: [id number] : 1985 33 From: Jacqueline Bobo MD PCP: Status: ADM IN Discharge Diet: No Restrictions Discharge Activity: Return to Normal Activity, May Shower, May Take a Tub Bath May resume sexual activity in: 4-6 weeks Additional Activity Instructions:: Nothing in the vagina for 4-6 weeks. You may return to work/school in 6 weeks. Call your doctor if you observe: Fever of 101 or Higher, Inability to urinate, Inability to have a bowel movement, Using more than one pad per hour, Shortness of breath, Chest pain, Calf discomfort, Uncontrolled pain Additional Instructions: If you experience any of the following, contact your healthcare provider. * Bleeding that soaks a pad every hour for 2 hours * Fever 100.4 or higher * Unrelieved incision or abdominal pain * Swelling, redness, discharge or bleeding from your incision or episiotomy site * Your incision begins to separate * Problems urinating (including inability to urinate or burning while urinating). * Visual changes * Severe headache * Flu-like symptoms * Pain or redness in one of both of your breasts * Pain, warmth, tenderness or swelling in your legs, especially the calf area * Frequent nausea and vomiting * Symptoms of depression or anxiety If you experience any of the following, call 911 or go to the nearest Emergency Room. * Chest pain * Problems breathing * Seizure activity * Partial or complete paralysis of a body part, slurred speech, weakness or drooping of the face, or a sudden inability to walk or hold your balance You may take Ibuprofen or Aleve over the counter for pain. Allergies/Adverse Reactions: Allergies nalbuphine [From Nubain] Allergy (Verified 05/27/18 00:11) Rash Medications to take at Discharge Inositol/V-Ywqxd-Deaebngm [Ovasitol Powder Packet] 1 each PO BID 05/27/18 Vits [Prenatabs FA] 1 tablet PO DAILY 05/27/18 Metformin(XR) [Glucophage Xr] 500 mg PO DAILY #30 tablet 05/28/18 The following prescriptions were given: Metformin(XR) [Glucophage Xr] 500 mg PO DAILY #30 tablet Please Follow Up With: Jacqueline Bear MD When: 6 weeks Test Results: Test results from this visit will be discussed in further detail at your follow-up appointment, if applicable. Proposed Discharge Date: 05/29/18 05/28/18729 <Electronically signed by Jacqueline Bear MD> Date Jacqueline Bear MD CC: BEDSIDE GLUCOSE Collected: 05/27/2018 Status: F Source: [place]EL 11:33 AM [facility] REPOSITORY TYPE CODE TESTS RESULT OUT OF REFERENCE UNITS RANGE LAB L501.080 70-110 mg/dL High BEDSIDE GLU 151 Result Comment: MANAGEMENT OF PATIENT CARE PER NURSING PROTOCOL Performed By: #### L501.080 #### [place] [facility] [place] [place], [place] [address] BEDSIDE GLUCOSE Collected: 05/27/2018 Status: F Source: [place]KAEL 6:47 AM [facility] REPOSITORY TYPE CODE TESTS RESULT OUT OF REFERENCE UNITS RANGE LAB L501.080 70-110 mg/dL High BEDSIDE GLU 112 Result Comment: MANAGEMENT OF PATIENT CARE PER NURSING PROTOCOL Performed By: #### L501.080 #### [facility] Point of Care [address] [place] [address] BEDSIDE GLUCOSE Collected: 05/27/2018 Status: F Source: [place]KAEL 3:46 AM [facility] REPOSITORY TYPE CODE TESTS RESULT OUT OF REFERENCE UNITS RANGE LAB L501.080 70-110 mg/dL High BEDSIDE GLU 115 Result Comment: MANAGEMENT OF PATIENT CARE PER NURSING PROTOCOL Performed By: #### L501.080 #### [facility] Point of Care [address] [place] [address] DISCHARGE INSTRUCTION Observed: 05/27/2018 Status: F Source: [place]KAEL 2:29 AM [facility] REPOSITORY [facility] Medical Records Department [address] [place] [address] Instructions for Home/Discharge Instructions 05/27/18 0228 MR#: [id number] Acct: [id number] Name: AVEL BARRON Rep #: [id number] : 1985 33 From: Devora Reid MD PCP: Status: ADM IN Discharge Diet: No Restrictions Discharge Activity: May Shower, May Take a Tub Bath May resume sexual activity in: 4-6 weeks Additional Activity Instructions:: Nothing in the vagina for 4-6 weeks. You may return to work/school in 6 weeks. Additional Instructions: If you experience any of the following, contact your healthcare provider. * Bleeding that soaks a pad every hour for 2 hours * Fever 100.4 or higher * Unrelieved abdominal pain * Problems urinating (including inability to urinate or burning while urinating). * Visual changes * Severe headache * Flu-like symptoms * Pain or redness in one of both of your breasts * Pain, warmth, tenderness or swelling in your legs, especially the calf area * Frequent nausea and vomiting * Symptoms of depression or anxiety If you experience any of the following, call 911 or go to the nearest Emergency Room. * Chest pain * Problems breathing * Seizure activity * Partial or complete paralysis of a body part, slurred speech, weakness or drooping of the face, or a sudden inability to walk or hold your balance Allergies/Adverse Reactions: Allergies nalbuphine [From Nubain] Allergy (Verified 05/27/18 00:11) Rash Medications to take at Discharge Inositol/T-Cvvwx-Nozojogp [Ovasitol Powder Packet] 1 each PO BID 05/27/18 Vits [Prenatabs FA] 1 tablet PO DAILY 05/27/18 Please Follow Up With: Jacqueline Bear MD - [phone] When: Call to make an appointment with your doctor in 6 weeks. Test Results: Test results from this visit will be discussed in further detail at your follow-up appointment, if applicable. Proposed Discharge Date: 05/29/18 05/27/18228 <Electronically signed by Devora Reid MD> Date Devora Reid MD CC: OPERATIVE REPORT Observed: 05/27/2018 Status: F Source: [place] 2:27 AM [facility] REPOSITORY [facility] Medical Records Department [address] [place] [address] Operative Report 05/27/18220 MR#: [id number] Acct: [id number] Name: AVEL BARRON Rep #: [id number] : 1985 33 From: Devora Reid MD PCP: Status: ADM IN Location: [place] [address] Vaginal Delivery Maternal Presentation: Active Labor 36 6/7 wk SROM , UCs Amniotic Membrane Rupture Type: Spontaneous at home Amniotic Fluid Description: Clear Final ANJELICA: 06/17/18 Gestational age: 37 Weeks and 0 Days Date of Procedure: 05/27/18 Pre-Operative Diagnosis: 36 6/7 wk SROM Post-Operative Diagnosis: 37 wk Surgery/ Procedure Performed: Spontaneous Vaginal Delivery Anesthesiologist: Rubi Bella Type of Anesthesia: Epidural Description of Procedure: of a arriola viable female over intact perineum. Head delivered OA. no nuchal cord Shoulders delivered easily. Cord clamped x two and cut. Infant to maternal abdomen with spont vigorous cry. Delayed cord clamping. Clamped x two and cut. PP exam; 1st posterior vag lac repaired to intact, hemostatic with 309 Vicryl Rapide Placenta delivered spont expulsion, expression 3V normal appearing and intact with trailing membranes EBL 200 cc Pt and jewel procedure well. To recovery, stable condition Ray Jonnie counts correct x two Presentation: Vertex, ALEJANDRO Placental Delivery Description: Spontaneous, Expressed Placenta Disposition: [facility] Cord Vessel Description: 3 Vessels Estimated Blood Loss: 200 A gender: Female (1 minute): 9 (5 minute): 10 Laceration: Vaginal Extension/lac, 1st degree - repaired to intact, hemostatic with fig 8 stitch 3-0 vicryl rapide under epidural Medications given after delivery: IV Pitocin Complications: None 05/27/18226 <Electronically signed by Devora Reid MD> Date Devora Reid MD CC: Devora Reid MD Signed BEDSIDE GLUCOSE Collected: 05/27/2018 Status: F Source: [place]KAEL 1:59 AM [facility] REPOSITORY TYPE CODE TESTS RESULT OUT OF RANGE REFERENCE UNITS LAB L501.080 70-110 mg/dL Normal BEDSIDE GLU 98 Result Comment: MANAGEMENT OF PATIENT CARE PER NURSING PROTOCOL Performed By: #### L501.080 #### [facility] Point of Care [address] [facility] [place] [address] BEDSIDE GLUCOSE Collected: 05/27/2018 Status: F Source: MIKAEL 12:58 AM [facility] REPOSITORY TYPE CODE TESTS RESULT OUT OF RANGE REFERENCE UNITS LAB L501.080 70-110 mg/dL Normal BEDSIDE GLU 88 Result Comment: MANAGEMENT OF PATIENT CARE PER NURSING PROTOCOL Performed By: #### L501.080 #### [facility] Point of Care [address] [place] [address] BEDSIDE GLUCOSE Collected: 05/26/2018 Status: F Source: MIKAEL 11:56 PM [facility] REPOSITORY TYPE CODE TESTS RESULT OUT OF RANGE REFERENCE UNITS LAB L501.080 70-110 mg/dL Normal BEDSIDE GLU 97 Result Comment: MANAGEMENT OF PATIENT CARE PER NURSING PROTOCOL Performed By: #### L501.080 #### [facility] Point of Care [address] [place], [place] [address] CBC-COMPLETE BLOOD CNT Collected: 05/26/2018 Status: F Source: MIKAEL NO DIFF 11:50 PM [facility] REPOSITORY TYPE CODE TESTS RESULT OUT OF RANGE REFERENCE UNITS LAB L100.1000 4.4-11.0 K/mm3 Normal WBC 9.8 LAB L100.1200 4.2-5.4 M/mm3 Low RBC 4.15 LAB L100.1300 12.0-15.0 g/dl Low HGB 9.7 LAB L100.1400 37-47 % Low HCT 31.4 LAB L100.1500 81-99 fL Low MCV 75.7 LAB L100.1600 27.0-32.0 pg Low MCH 23.4 LAB L100.1700 32-36 g/gl Low MCHC 30.9 LAB L100.1810 11.6-14.6 % High RDW CV 16.2 LAB L100.1820 35.1-43.9 fl Normal RDW SD 43.4 LAB L100.1900 150-450 K/mm3 Normal PLT 198 LAB L100.2000 6.2-12.0 fl Normal MPV 10.9 Performed By: #### L100.0500 #### [facility] [address] [place], [place], [address] TYPE AND SCREEN Collected: 05/26/2018 Status: F Source: MIKAEL 11:50 PM [facility] REPOSITORY Order Comment: Reason for Type AND Screen/Red Cells: ROUTINE TYPE CODE TESTS RESULT OUT OF RANGE REFERENCE UNITS LAB B10.0800 A Normal BLOOD TYPE GEL POSITIVE LAB B100.4000 Normal Antibody NEGATIVE Screen Performed By: #### B101.7450 #### [facility] [address] [facility] [place], [place], [address] GROUP B STREP DNA Collected: 05/26/2018 Status: F Source: MIKAEL BY PCR 11:00 AM [facility] REPOSITORY Order Comment: Source: Vaginal-Rectal TYPE CODE TESTS RESULT OUT OF RANGE REFERENCE UNITS LAB L8200.0100 Negative Normal GBS TEST Negative RESULT Performed By: #### L8200.0000 #### [facility] [address] [place], [address] Observed: 05/26/2018 Status: F Source: MIKAEL CULTURE, GROUP B 12:00 AM [facility] STREPTOCOCCUS REPOSITORY SUSAN Culture Group B Beta Streptococcus is not isolated. Performed By: #### M100.1800 #### [facility] [address] [place], [address] GESTATIONAL GTT 3HR Collected: 04/09/2018 Status: F Source: MIKAEL 100G 9:26 AM [facility] REPOSITORY Order Comment: Is Patient Fasting? Y TYPE CODE TESTS RESULT OUT OF RANGE REFERENCE UNITS LAB L501.0660 <190 mg/dL Normal GLU GTT- 180 1HR LAB L501.0650 <105 mg/dL Normal GLU 82 GTT-FASTING Result Comment: GLUCOSE TOLERANCE TEST FOR Reference Interval GESTATIONAL DIABETES Fasting <105 mg/dL 1 hour <190 mg/dl 2 hour <165 mg/dl 3 hour <145 mg/dl LAB L501.0670 <165 mg/dL High GLU GTT- 215 2HR LAB L501.0680 <145 L High GLU GTT- 196 3HR Performed By: #### L500.4710 #### [facility] [address] [place], [address] CBC-COMPLETE BLOOD CNT Collected: 03/31/2018 Status: F Source: [place]KAEL NO DIFF 11:00 AM [facility] REPOSITORY TYPE CODE TESTS RESULT OUT OF RANGE REFERENCE UNITS LAB L100.1000 4.4-11.0 K/mm3 Normal WBC 10.4 LAB L100.1200 4.2-5.4 M/mm3 Normal RBC 4.23 LAB L100.1300 12.0-15.0 g/dl Low HGB 10.6 LAB L100.1400 37-47 % Low HCT 34.8 LAB L100.1500 81-99 fL Normal MCV 82.3 LAB L100.1600 27.0-32.0 pg Low MCH 25.1 LAB L100.1700 32-36 g/gl Low MCHC 30.5 LAB L100.1810 11.6-14.6 % Normal RDW CV 14.6 LAB L100.1820 35.1-43.9 fl Normal RDW SD 43.6 LAB L100.1900 150-450 K/mm3 Normal PLT 214 LAB L100.2000 6.2-12.0 fl Normal MPV 10.7 Performed By: #### L100.0500 #### [facility] [address] [place], [address] GLUCOSE CHALLENGE GEST Collected: 03/31/2018 Status: F Source: MIKAEL 1H 50G 11:00 AM [facility] REPOSITORY TYPE CODE TESTS RESULT OUT OF RANGE REFERENCE UNITS LAB L501.0250 70-140 mg/dL High GLU GEST 180 50g 1H Performed By: #### L501.0250 #### [facility] [address] [place], [address] VITAMIN D,25 HYDROXY Collected: 03/31/2018 Status: F Source: MIKAEL 11:00 AM [facility] REPOSITORY TYPE CODE TESTS RESULT OUT OF RANGE REFERENCE UNITS LAB L506.1000 29.95-100.01 ng/mL Normal Vitamin D 45.2 25-OH Result Comment: Vitamin D 25(OH) Status Range Deficiency <20 ng/mL (50nmol/L) Insuffciency 20 - 30 ng/mL (50 - 75 nmol/L) Sufficiency 30 - 100 ng/mL (75 - 250 nmol/L) Toxicity >100 ng/mL (>250 nmol/L) Performed By: #### L506.1000 #### [facility] [address] [place], [address] URINE DRUG SCREEN Collected: 12/11/2017 Status: F Source: MIKAEL (VISTA) 2:38 PM [facility] REPOSITORY Order Comment: List of Drugs Taken or Suspected? UNK TYPE CODE TESTS RESULT OUT OF RANGE REFERENCE UNITS LAB L505.0075 TO BE Normal CONFIRMED Result Comment: CONFIRMATORY TESTING FOR ALL POSITIVE URINE DRUG SCREEN RESULTS WILL ONLY BE SENT OUT UPON PHYSICIAN ORDER. VISTA Urine Drug Screen methods provide only preliminary analytical test results. A more specific alternate chemical method must be used in order to obtain a confirmed analytical result. Gas chromatography/mass spectrometery (GC/MS) is the preferred confirmatory method. Clinical consideration and professional judgement should be applied to any drug of abuse test result, particularly when preliminary positive results are used. URINE TCA TESTING MUST BE ORDERED SEPARATELY. USE TEST MNEMONIC: [facility] LAB L505.5005 VISTA UDS PH 6 Normal LAB L505.5015 <1000 ng/mL AMPHETAMINES Normal NEGATIVE LAB L505.5025 < 200 ng/mL BARBITIURATES Normal NEGATIVE LAB L505.5035 < 200 ng/mL BENZODIAZIPINE Normal NEGATIVE LAB L505.5045 < 300 ng/mL COCAINE Normal NEGATIVE LAB L505.5055 < 500 ng/mL ECSTACY Normal NEGATIVE LAB L505.5065 < 300 ng/mL METHADONE Normal NEGATIVE LAB L505.5075 < 300 ng/mL OPIATES Normal NEGATIVE LAB L505.5085 < 25 ng/mL PCP Normal NEGATIVE LAB L505.5095 < 50 ng/mL THC Normal NEGATIVE Performed By: #### L505.4999 #### [facility] [address] [place], [place], [id number] URINALYSIS, ROUTINE Collected: 12/11/2017 Status: F Source: [place] (DIPSTICK) 2:38 PM [facility] REPOSITORY Order Comment: How was Urine Obtained? Urine, Random TYPE CODE TESTS RESULT OUT OF RANGE REFERENCE UNITS LAB L400.3000 Yellow COLOR Normal Yellow LAB L400.3050 Clear Normal CLARITY Sl. Cloudy LAB L400.3200 Normal mg/dl High 50 GLUCOSE, UR LAB L400.3300 Negative mg/dL Normal BILIRUBIN URINE Negative LAB L400.3400 Negative mg/dl High KETONE UR 150 Result Comment: RESULTS CALLED TO CARLTON LAMAS 12/11/17 1619 Demetris Curran. REPORT READ BACK BY SAME . CRITICAL VALUE *H LAB L400.3465 1.002-1.030 Normal SP.GR. DIPSTX 1.030 LAB L400.3550 5.0 - 8.0 pH Normal UR 6.0 LAB L400.3600 Negative mg/dl High 15 PROT DIPSTX LAB L400.3700 Normal mg/dl Normal UROBILI Normal LAB L400.3750 Negative Normal NITRITE UR Negative LAB L400.3780 Negative /ul Normal OCCULT Negative BLOOD-UR LAB L400.3800 Negative /ul Normal LEUK ESTERASE Negative Performed By: #### L400.2010 #### [facility] [address] [place], [place], [id number] CBC W/DIFF, AUTOMATED Collected: 12/11/2017 Status: F Source: MIKAEL 2:38 PM [facility] REPOSITORY TYPE CODE TESTS RESULT OUT OF RANGE REFERENCE UNITS LAB L100.1000 4.4-11.0 K/mm3 High WBC 12.0 LAB L100.1200 4.2-5.4 M/mm3 Normal RBC 4.86 LAB L100.1300 12.0-15.0 g/dl Normal HGB 13.3 LAB L100.1400 37-47 % Normal HCT 41.5 LAB L100.1500 81-99 fL Normal MCV 85.4 LAB L100.1600 27.0-32.0 pg Normal MCH 27.4 LAB L100.1700 32-36 g/gl Normal MCHC 32.0 LAB L100.1810 11.6-14.6 % High RDW CV 14.8 LAB L100.1820 35.1-43.9 fl High RDW SD 45.7 LAB L100.1900 150-450 K/mm3 Normal PLT 211 LAB L100.2000 6.2-12.0 fl Normal MPV 11.4 LAB L100.2100 47-70 % Normal NEUT% 68.1 LAB L100.2200 19-41 % Normal LY% 22.8 LAB L100.2300 0-10 % Normal MONO% 7.1 LAB L100.2400 0-5 % Normal EO% 1.4 LAB L100.2500 0-1 % Normal BASO% 0.3 LAB L100.2550 0.0-0.9 % Normal IM GRAN % 0.300 Result Comment: IG% - Immature Granulocytes (promyelocytes, myelocytes and metamyelocytes) > 1% indicates that a LEFT SHIFT is Present. LAB L100.2620 2.0-7.7 X10 3/uL High Absolute Neut 8.2 LAB L100.2720 0.83-4.51 X10 3/ul Normal Absolute Lymph 2.73 Performed By: #### L100.0100 #### [facility] [address] [place], [place], [id number] COMPREHENSIVE METABOLIC Collected: 12/11/2017 Status: F Source: [place] [facility] 2:38 PM [facility] REPOSITORY TYPE CODE TESTS RESULT OUT OF RANGE REFERENCE UNITS LAB L501.0100 74-106 mg/dL High GLU 113 Result Comment: Fasting Glucose result from 100 to 125 mg/dL suggests IMPAIRED HOMEOSTASIS per A.D.A. criteria. Please note revised GLUCOSE reference range effective 2017. LAB L501.1000 7-18 mg/dL Normal BUN 12 LAB L501.1100 0.55-1.02 mg/dL Low CREAT,SERUM 0.47 Result Comment: The validity of the calculated GFR AND GFRAA in patients over 70 years has not been determined. Clinical correlation is essential. LAB L501.1110 >60 mL/min Normal EST GFR 161 Result Comment: Non- GFR Calc LAB L501.1115 >60 mL/min Normal EST GFR - AA 194 Result Comment: GFR Calc LAB L501.1300 10-20 RATIO High BUN/CRE 25.5 LAB L501.1500 6.4-8.2 g/dL T Normal PROT 6.9 LAB L501.1800 3.2-5.0 g/dL Normal ALB 3.3 LAB L501.1950 2.2-4.2 g/dL Normal GLOB 3.6 LAB L501.2000 0.9-2.4 RATIO Normal A/G 0.9 LAB L501.2200 8.5-10.1 mg/dL CA Normal 9.1 LAB L501.4100 15-37 U/L Low AST 14 LAB L501.4305 45-117 U/L Normal ALK P 67 LAB L501.4405 13-56 U/L Normal ALT 26 LAB L501.4600 0.20-1.00 mg/dL T Normal BILI 0.60 LAB L501.5300 136-145 mmol/L NA Normal 139 LAB L501.5600 3.5-5.1 mmol/L K Normal 4.0 LAB L501.5900 98-107 mmol/L CL Normal 105 LAB L501.6100 21.0-32.0 mmol/L Normal CO2 24.0 LAB L501.6200 5-15 Normal GAP 10 Performed By: #### L500.4050, L501.9520 #### [facility] [place], [address] THYROID STIM HORMONE Collected: 12/11/2017 Status: F Source: MIKAEL (TSH) 2:38 PM [facility] REPOSITORY TYPE CODE TESTS RESULT OUT OF RANGE REFERENCE UNITS LAB L501.9520 0.358-3.74 uIU/mL Normal TSH 1.01 Performed By: #### L500.4050, L501.9520 #### [facility] [address] [place], [address] HEMOGLOBIN A1C Collected: 12/11/2017 Status: F Source: [place]KA[place] 2:38 PM [facility] REPOSITORY TYPE CODE TESTS RESULT OUT OF RANGE REFERENCE UNITS LAB L501.9985 4.2-6.3 % Normal HGB A1C 5.3 Performed By: #### L501.9985 #### [facility] [address] [place], [address] T AND S-NO Collected: 12/11/2017 Status: F Source: MIKAEL CHARGE W/PNP 2:38 PM [facility] REPOSITORY Order Comment: Reason for Type AND Screen/Red Cells: Surgery? N TYPE CODE TESTS RESULT OUT OF RANGE REFERENCE UNITS LAB B10.0800 A Normal BLOOD POSITIVE TYPE GEL LAB B100.4050 Normal Ab SCREEN NEGATIVE GEL Performed By: #### B100.7550 #### [facility] [address] [place], [address] RPR Collected: 12/11/2017 Status: F Source: [place] 2:38 PM [facility] REPOSITORY TYPE CODE TESTS RESULT OUT OF REFERENCE UNITS RANGE LAB L700.5100 NONREACTIVE Normal RPR NONREACTIVE Performed By: #### L700.5100 #### [facility] [address] [place], [address] VITAMIN D,25 HYDROXY Collected: 12/11/2017 Status: F Source: [place] 2:38 PM [facility] REPOSITORY TYPE CODE TESTS RESULT OUT OF REFERENCE UNITS RANGE LAB L506.1000 29.95-100.01 ng/mL Low Vitamin D 24.4 25-OH Result Comment: Vitamin D 25(OH) Status Range Deficiency <20 ng/mL (50nmol/L) Insuffciency 20 - 30 ng/mL (50 - 75 nmol/L) Sufficiency 30 - 100 ng/mL (75 - 250 nmol/L) Toxicity >100 ng/mL (>250 nmol/L) Performed By: #### L506.1000, L509.4000, L3890.6005 #### [facility] [address] [place], [place], [id number] RUBELLA IGG Collected: 12/11/2017 Status: F Source: [place] 2:38 PM [facility] REPOSITORY TYPE CODE TESTS RESULT OUT OF RANGE REFERENCE UNITS LAB L509.4000 IU/mL Normal Rubella IgG 70.7 Result Comment: Antibody results Interpretation of Immune Status < 5 IU/ml Presumed Non-immune 5 - < 10 IU/ml Equivocal > or = 10 IU/ml Presumed Immune Performed By: #### L506.1000, L509.4000, L3890.6005 #### [facility] [address] [place] [address], [id number] HIV - [facility] Collected: 12/11/2017 Status: F Source: [place] 2:38 PM [facility] REPOSITORY TYPE CODE TESTS RESULT OUT OF RANGE REFERENCE UNITS LAB L3890.6005 Nonreactive Normal HIV - [facility] Non-Reactive Performed By: #### L506.1000, L509.4000, L3890.6005 #### [facility] [address] [place] [address], [id number] HEPATITIS B SURFACE Collected: 12/11/2017 Status: F Source: [place] AG 2:38 PM [facility] REPOSITORY TYPE CODE TESTS RESULT OUT OF RANGE REFERENCE UNITS LAB L3100.0400 Negative Normal HB Negative SURF AG Result Comment: Performed at: [facility] [id number] Soft Crab Shedder: Matt [place] PhD, Phone: [phone] Performed By: #### L3100.0390, L3100.0625 #### [facility] (refer to report for specific site) refer to report for address and phone number HEPATITIS C ANTIBODIES Collected: 12/11/2017 Status: F Source: [place] 2:38 PM [facility] REPOSITORY TYPE CODE TESTS RESULT OUT OF RANGE REFERENCE UNITS LAB L3100.0650 0.0-0.9 s/co ratio Normal HEP C AB <0.1 Result Comment: Negative: < 0.8 Indeterminate: 0.8 - 0.9 Positive: > 0.9 The CDC recommends that a positive HCV antibody result be followed up with a HCV Nucleic Acid Amplification test (266606). Performed By: #### L3100.0390, L3100.0625 #### [facility] (refer to report for specific site) refer to report for address and phone number CT/NG [facility] BY PCR Collected: 11/10/2017 Status: F Source: [place]KAEL 8:45 AM [facility] REPOSITORY TYPE CODE TESTS RESULT OUT OF RANGE REFERENCE UNITS LAB L8200.2100 Negative Normal Chlam Negative Trac PCR LAB L8200.2200 Negative Normal NG by Negative PCR Performed By: #### L8200.2000 #### [facility] [address] [place], [address] ALLERGIES ALLERGIES DATE TYPE / CODE NAME / CODE REACTION SEVERITY SOURCE 07/09/2018 Drug nalbuphine/F0 Rash Unknown [facility] Allergy/4160 [id number](RX Hospital 85629(SNOMED RM) Repository CT) 03/28/2016 Drug No Known Unknown [facility] Allergy/4160 Allergies/F00 [place] [id number](SNOMED [id number](RXNOR Repository CT) M) ENCOUNTERS ENCOUNTERS ADMIT/DISCHARGE ACCOUNT ADMITTING ENCOUNTER LOCATION SOURCE NUMBER CLASS 07/16/2018/ [id number] Amb[place] [facility] ing:SDCRoom: Repository AC08 06/17/2018 [id number] [place], Ambulatory [place] [address] [facility] ing:WP Repository 06/14/2018 [id number] Ambulatory [place] 9 [facility] ing:DC Repository 05/26/2018/ [id number] [place], Inpatient [place] Encounter [facility] ing:WPRoom: Repository [id number]: 1 05/26/2018 [id number] Ambulatory [place] 1 [facility] ing:LABSPEC Repository 05/11/2018/ [id number] Ambulatory [place] [address] 1 [facility] ing:DC Repository 04/29/2018/ [id number] Ambulatory [place] 7 [facility] ing:DC Repository 04/09/2018 [id number] Ambulatory [place] 9 [facility] ing:LAB Repository 04/03/2018 [id number] Ambulatory [place] 4 [facility] ing:LAB.FUTUR Repository E 03/31/2018 [id number] Ambulatory [place] 3 [facility] ing:WOBLAB Repository 12/11/2017 [id number] Ambulatory [place] 3 [facility] ing:WOBLAB Repository 11/10/2017 [id number] Ambulatory [place] 3 [facility] ing:LABSPEC Repository PAYERS PAYERS ENCOUNTER GUARANTOR PAYER SUBSCRIBER SOURCE 07/16/2018 AVEL L Primary AVEL L Mikael [id number] Insurance:ANTHEMPolic ALEXANDERDOB: [facility] y Number: [id number] [id number] Repository [address]Uyz: (330) Date:6709-16-95[phone] () [address] [place] [address] 90863MU: 07/16/2018 Secondary NOT GIVENUNK Mikael Insurance:SELF PAY [facility] Number: Effective Repository Date:2018-06-02 06/17/2018 AVEL L Primary AVEL L Mikael [id number] Insurance:ANTHEMPolic ALEXANDERDOB: [facility] y Number: [id number] [id number] Repository [address]Alv: (330) Date:3073-12-15XT [phone] () [id number], [place] [address]OQ: 06/17/2018 Secondary NOT GIVENUNK [place] Insurance:SELF PAY [facility] Number: Effective Repository Date:2018-04-09 06/14/2018 AVEL L Primary NOT GIVENUNK Mikael [id number] Insurance:SELF PAY [place] Number: Effective Repository [phone]: (330) Date:2018-06-04 [phone] () 05/26/2018 AVEL L Primary AVEL L [place] [id number] Insurance:ANTHEMPolic ALEXANDERDOB: [facility] y Number: [id number] [id number] Repository [address]Jcf: (330) Date:3335-25-36DR [phone] () [address] [place] [address]33[address]WA: 05/26/2018 Secondary NOT GIVENUNK [place] Insurance:SELF PAY [facility] Number: Effective Repository Date:2018-05-26 05/26/2018 AVEL L Primary AVEL L Mikael [id number] Insurance:ANTHEMPolic ALEXANDERDOB: [facility] y Number: [id number] [id number] Repository [address]Kmr: (330) Date:0942-17-54EQ [phone] () [address] [place] [address] 68923CW: 05/26/2018 Secondary NOT GIVENUNK Mikael Insurance:SELF PAY [facility] Number: Effective Repository Date:2018-05-26 05/11/2018 AVEL L Primary AVEL L [place] [id number] Insurance:ANTHEMPolic ALEXANDERDOB: [facility] y Number: [id number] [id number] Repository 944[address]Fif: (330) Date:3611-01-76BW [phone] () [id number] [place] [address] 15923AW: 05/11/2018 Secondary NOT GIVENUNK [place] Insurance:SELF PAY [facility] Number: Effective Repository Date:2018-05-04 04/29/2018 AVEL L Primary AVEL L Mikael [id number] Insurance:ANTHEMPolic ALEXANDERDOB: [facility] y Number: [id number] [id number] Repository 116[address]Cgg: (330) Date:4143-55-81OJ [phone] () [id number] LEON [address]LI: 04/29/2018 Secondary NOT GIVENUNK Mikael Insurance[facility]LF [facility]: Effective Repository Date:2018-04-14 04/09/2018 Avel Primary Avel Youssef [id number] Insurance:ANTHEMPolic AlexanderDOB: [facility] y Number: [id number] [id number] Repository 294[address]Wkd: (330) Date:4532-98-01EY [phone] () [id number] LEON [address]TQ: 04/09/2018 Secondary NOT GIVENUNK Mikael Insurance:SELF PAY [facility] Number: Effective Repository Date:2018-04-02 04/03/2018 Avel [facility] Avel Youssef [id number] Insurance:ANTHEMPolic AlexanderDOB: [facility] y Number: [id number] [id number] Repository [address]Nto: (330) Date:3877-69-57TY [phone] () 786884UVBYYQECORNELIA LEON [address]JQ: 04/03/2018 Secondary NOT GIVENUNK [place] Insurance:SELF PAY [facility] Number: Effective Repository Date:2018-04-03 03/31/2018 Avel Primary Avel Youssef [id number] Insurance:ANTHEMPolic AlexanderDOB: [facility] y Number: [id number] [id number] Repository [address]Gxb: (330) Date:7639-77-18IB [phone] () [id number] LEON 58990XW: 03/31/2018 Secondary NOT GIVENUNK [place] Insurance:SELF PAY [facility] Number: Effective Repository Date:2018-03-31 12/11/2017 Avel Primary Avel Youssef [id number] Insurance:ANTHEMPolic AlexanderDOB: [facility] y Number: [id number] [id number] Repository 75635Bwz: (330) Date:0494-56-31DG [phone] () [id number] LEON [address]YO: 12/11/2017 Secondary NOT GIVENUNK Mikael Insurance:SELF PAY [facility] Number: Effective Repository Date:2017-12-11 11/10/2017 Avel Primary Avel [place] [id number] Insurance:ANTHEMPolic AlexanderDOB: [facility] y Number: [id number] [id number] Repository 92423Slp: (330) Date:9262-75-97TW [phone] () [address]2400DHHINJC, [place] [address]JF: 11/10/2017 Secondary NOT GIVENUNK [place] Insurance:SELF PAY [facility] Number: Effective Repository Date:2017-11-10
== END 2018-07-16 11:53 | disposition home or self-care (01) ==
LOC: SDC 07:06 → AC 07:06
PROVIDERS: Family Provider Family Medicine; PCP Family Medicine; Referring Provider Obstetrics & Gynecology; Visit Provider Obstetrics & Gynecology
PROC: (CPT 58661; principal; 2018-07-16 08:25)
DX: Z30.2 Encounter for sterilization (principal); N73.6 Female pelvic peritoneal adhesions (postinfective)
CPT/HCPCS: 00840; 58661; 80048; 81025; 82728; 83036; 83540; 83550; 84466; 85027; 85610; 85730; 86850; 86900; 88302; J7120; C1760; J2405

== ENCOUNTER → 2019-02-16 | Outpatient (CLI) | payer OTHER, SELFPAY ==
[2019-02-16 10:35] LABS: Hemoglobin A1c 5.7 % (4.2-6.3)
[2019-02-16 10:45] LABS: Alanine Aminotransfer ALT/SGPT 23 U/L (13-56); Cholesterol 203 mg/dL (200); Creatinine, Serum 0.64 mg/dL (0.55-1.02); EST Glomerular Filtration Rate 113 mL/min (>60); Est Glom Filt Rate - Afr Amer 136 mL/min (>60); High Density Lipoprotein 63 mg/dL; Thyroid Stim Hormone (TSH) 1.42 uIU/mL (0.358-3.74); Triglycerides 83 mg/dL; Very Low Density Lipoprotein 17 mg/dL (5-40)
== END | disposition home or self-care (01) ==
LOC: MFPLAB 09:15
PROVIDERS: Family Provider Family Medicine; PCP Family Medicine; Referring Provider Family Medicine; Visit Provider Family Medicine
DX: Z00.00 Encounter for general adult medical examination without abnormal findings (principal); O24.419 Gestational diabetes mellitus in pregnancy, unspecified control; O22.00 Varicose veins of lower extremity in pregnancy, unspecified trimester; Z3A.00 Weeks of gestation of pregnancy not specified
CPT/HCPCS: 36415; 80061; 82565; 83036; 84443; 84460